=== PATIENT | female | born 1980 | race Two or more races ===

== ENCOUNTER 2017-11-15 17:54 | Emergency (ER) | payer SELFPAY ==
[~2017-11-15] VITALS: Ht 170.2 cm; Wt 107.6 kg
[2017-11-15 19:14] LABS: HCG UR LOT HCG706132
[2017-11-15 19:18] LABS: HEMATOCRIT 39.9 % (34.6-47.8); HEMOGLOBIN 13.4 g/dL (11.7-16.4); WHITE BLOOD COUNT 11.4 x10^3/uL (3.4-10)
[2017-11-15 19:29] LABS: BLOOD UREA NITROGEN 14 mg/dL (7-18)
[2017-11-15 19:48] LABS: HCG UR OBC PASS
[2017-11-15 20:35] VITALS: BP 120/67
== END 2017-11-15 20:57 | disposition home or self-care (01) ==
LOC: ED 20:08
DX: N30.01 Acute cystitis with hematuria (principal)
CPT/HCPCS: 36415; 80048; 81001; 81025; 82040; 85025; 87077; 87086; 87186; 99284